=== PATIENT | female | born 1960 | race African-American/Black ===

== ENCOUNTER 2016-11-27 20:48 | Emergency (ER) | payer OTHER ==
[~2016-11-27] VITALS: Ht 167.6 cm; Wt 88.0 kg
[~2016-11-27 20:48] MED LIST: BENA25TA8 PO; EPIP0.3I IM; PRED20 PO
[2016-11-27 20:54] VITALS: BP 148/73; PULSE 83; RESP 15; TEMP 98.8; O2SAT 100
--- NOTE | 2016-11-27 22:05 | PD ---
HPI Chief Complaint: Abdominal Pain Time Seen by Provider: 22:05 Travel History International Travel<30 days: No Contact w/Intl Traveler<30days: No Traveled to known affect area: No History of Present Illness HPI 56 YO F with PMH of anxiety and depression presents to the ED for evaluation of 1 week history of dull, diffuse abdominal pain, multiple episodes of loose, mucous-like stools. Patient endorses accompanying nausea. She thinks she may have seen a little bit of streaky blood in the stool today. She denies fever, chills, vomiting, dysuria. She's never had a similar episode. Denies abdominal surgery. She endorses negative colonoscopy at age 52. PFSH Past Medical History Diminished Hearing: No Immunizations Current: No ?: Not Menopausal: Yes Social History Alcohol Use: No Tobacco Use: No Substance Use: Yes Allergies-Medications (Allergen,Severity, Reaction): Coded Allergies: peanut (Unverified Allergy, Unknown, Anaphylaxis, 11/27/16) Reported Meds & Prescriptions Reported Meds & Active Scripts Active Lortab (Hydrocodone-Acetaminophen) 5-325 Mg Tab 1 Tab PO Q6H PRN Flagyl (Metronidazole) 500 Mg Tab 500 Mg PO TID 7 Days Cipro (Ciprofloxacin HCl) 500 Mg Tab 500 Mg PO BID 7 Days Protonix (Pantoprazole Sodium) 40 Mg Tab 40 Mg PO DAILY Reported Epipen (Epinephrine) 0.3 Mg/0.3 Ml Auto.injct 1 Ampule SQ PRN Lexapro (Escitalopram Oxalate) 10 Mg Tab 10 Mg PO DAILY Claritin (Loratadine) 10 Mg Cap 10 Mg PO DAILY Singulair (Montelukast Sodium) 10 Mg Tab 10 Mg PO HS Review of Systems Except as stated in HPI: all other systems reviewed are Neg Physical Exam Narrative GENERAL: Well-nourished, well-developed black female in no acute distress. SKIN: Focused skin assessment warm/dry. HEAD: Normocephalic. EYES: No scleral icterus. No injection or drainage. NECK: Supple, trachea midline. No JVD or lymphadenopathy. CARDIOVASCULAR: Regular rate and rhythm without murmurs, gallops, or rubs. RESPIRATORY: Breath sounds clear and equal bilaterally. No accessory muscle use. GASTROINTESTINAL: Abdomen soft, nondistended. Mildly diffusely tender including in the right upper quadrant. Hypoactive bowel sounds. RECTAL EXAM: No masses or tenderness, stool is mucousy. Guaiac positive. MUSCULOSKELETAL: No cyanosis, or edema. BACK: Nontender without obvious deformity. No CVA tenderness. Data Data Last Documented VS Vital Signs Date Time Temp Pulse Resp B/P (MAP) Pulse Ox O2 Delivery O2 Flow Rate FiO2 11/28/16 00:22 11/27/16 23:45 16 11/27/16 20:54 98.8 83 100 Room Air Orders Orders Complete Blood Count With Diff (11/27/16 22:15) Comprehensive Metabolic Panel (11/27/16 22:15) Lipase (11/27/16 22:15) Lactic Acid (11/27/16 22:15) Prothrombin Time / Inr (Pt) (11/27/16:15) Act Partial Throm Time (Ptt) (11/27/16:15) Urinalysis - C+S If Indicated (11/27/16 22:15) Ct Abd/Pel W Iv Contrast(Rout) (11/27/16 22:15) Iv Access Insert/Monitor (11/27/16 22:15) Ecg Monitoring (11/27/16 22:15) Oximetry (11/27/16 22:15) NPO (11/27/16 22:15) Ondansetron Inj (Zofran Inj) (11/27/16 22:15) Sodium Chlor 0.9% 1000 Ml Inj (Ns 1000 M (11/27/16 22:15) Sodium Chloride 0.9% Flush (Ns Flush) (11/27/16 22:15) Morphine Inj (Morphine Inj) (11/27/16 22:15) Pantoprazole (Protonix) (11/27/16 23:00) Calcium Carbonate Chew (Tums Chew) (11/27/16 23:15) Iohexol 350 Inj (Omnipaque 350 Inj) (11/27/16 23:27) Acetamin-Hydrocod 325-5 Mg ([place] 5-325 (11/28/16 00:00) Labs Laboratory Tests Test 11/27/16 22:25 11/27/16 22:34 Urine Color YELLOW Urine Turbidity CLEAR Urine pH 6.0 Urine Specific [place] 1.022 Urine Protein TRACE mg/dL Urine Glucose (UA) NEG mg/dL Urine Ketones NEG mg/dL Urine Occult Blood NEG Urine Nitrite NEG Urine Bilirubin NEG Urine Urobilinogen 2.0 MG/DL Urine Leukocyte Esterase NEG Urine RBC 2 /hpf Urine WBC 2 /hpf Urine Squamous Epithelial Cells 3 /hpf Urine Mucus FEW /lpf Microscopic Urinalysis Comment CULT NOT INDICATED White Blood Count 9.1 TH/MM3 Red Blood Count 4.18 MIL/MM3 Hemoglobin 12.4 GM/DL Hematocrit 37.7 % Mean Corpuscular Volume 90.2 FL Mean Corpuscular Hemoglobin 29.7 PG Mean Corpuscular Hemoglobin Concent 32.9 % Red Cell Distribution Width 14.2 % Platelet Count 259 TH/MM3 Mean Platelet Volume 9.3 FL Neutrophils (%) (Auto) 65.2 % Lymphocytes (%) (Auto) 25.0 % Monocytes (%) (Auto) 8.1 % Eosinophils (%) (Auto) 1.4 % Basophils (%) (Auto) 0.3 % Neutrophils # (Auto) 6.0 TH/MM3 Lymphocytes # (Auto) 2.3 TH/MM3 Monocytes # (Auto) 0.7 TH/MM3 Eosinophils # (Auto) 0.1 TH/MM3 Basophils # (Auto) 0.0 TH/MM3 CBC Comment DIFF FINAL Differential Comment Prothrombin Time 10.0 SEC Prothromb Time International Ratio 0.9 RATIO Activated Partial Thromboplast Time 24.3 SEC Blood Urea Nitrogen 9 MG/DL Creatinine 0.60 MG/DL Random Glucose 76 MG/DL Total Protein 8.0 GM/DL Albumin 3.3 GM/DL Calcium Level 8.3 MG/DL Alkaline Phosphatase 87 U/L Aspartate Amino Transf (AST/SGOT) 20 U/L Alanine Aminotransferase (ALT/SGPT) 29 U/L Total Bilirubin 0.3 MG/DL Sodium Level 138 MEQ/L Potassium Level 3.9 MEQ/L Chloride Level 107 MEQ/L Carbon Dioxide Level 24.0 MEQ/L Anion Gap 7 MEQ/L Estimat Glomerular Filtration Rate 126 ML/MIN Lactic Acid Level 0.9 mmol/L Lipase 132 U/L MDM Medical Decision Making Medical Screen Exam Complete: Yes Emergency Medical Condition: Yes Differential Diagnosis Colitis versus IBD versus cholecystitis versus diverticulitis versus other Narrative Course 56 YO F with PMH of anxiety and depression presents to the ED for evaluation of 1 week history of dull, diffuse abdominal pain, multiple episodes of loose, mucous-like stools. Patient endorses accompanying nausea. She thinks she may have seen a little bit of streaky blood in the stool today. She denies fever, chills, vomiting, dysuria. She's never had a similar episode. Denies abdominal surgery. She had a colonoscopy at age 52. Vitals reviewed. On physical exam the patient is nontoxic appearing but does have diffuse, mild tenderness in the abdomen. Guaiac positive on rectal exam. Patient was administered a liter of normal saline, 4 mg Zofran, 2.5 mg morphine IV and 40 mg Protonix by mouth. No elevation of the white count or anemia. Mild hypocalcemia. Patient was administered [address] is pending at this time. Disposition per Dr. Saavedra. [facility] Point of Care Internal Pos. & Neg. Controls: Passed Fecal Specimen Occult Blood: Positive Diagnosis Primary Impression: GI bleed Qualified Codes: K92.2 - Gastrointestinal hemorrhage, unspecified Referrals: [employer] [employer] Patient Instructions: Gastrointestinal Bleeding (ED), General Instructions Med/Other Pt SpecificInfo: Prescription(s) given Scripts Hydrocodone-Acetaminophen (Lortab) 5-325 Mg Tab 1 TAB PO Q6H Y for PAIN, #7 TAB 0 Refills Prov: Dottie Saavedra MD 11/27/16 Metronidazole (Flagyl) 500 Mg Tab 500 MG PO TID for Infection for 7 Days, TAB 0 Refills Prov: Dottie Saavedra MD 11/27/16 Ciprofloxacin (Cipro) 500 Mg Tab 500 MG PO BID for Infection for 7 Days, #14 TAB 0 Refills Prov: Dottie Saavedra MD 11/27/16 Pantoprazole (Protonix) 40 Mg Tab 40 MG PO DAILY for GI bleed, #30 TAB 0 Refills Prov: Dottie Saavedra MD 11/27/16 Disposition: 01 DISCHARGE HOME Condition: Stable Yun Salas Nov 27, 2016 22:05
[2016-11-27] MEDS ORDERED: MONT10TA2 PO (22:09)
[2016-11-27] MEDS ORDERED: CLAR10CA3 PO (22:09)
[2016-11-27] MEDS ORDERED: EPIN0.3A2 SQ (22:09)
[2016-11-27] MEDS ORDERED: LEXA10TA PO (22:09)
[2016-11-27] MEDS ORDERED: SODIUM CHLORIDE 0.9% FLUSH 10 ML FLUSH IV FLUSH PRN (22:15)
[2016-11-27] MEDS ORDERED: SODIUM CHLOR 0.9% 1000 ML INJ 1,000 ML IV SCH (22:15)
[2016-11-27] MEDS ORDERED: MORPHINE SULFATE 4 MG/ML INJ IV PUSH ONE (22:15)
[2016-11-27] MEDS ORDERED: ONDANSETRON HCL 4 MG/2 ML VIAL IVP ONE (22:15)
[2016-11-27 22:40] LABS: BLOOD, URINE NEG (NEG); COMMENT (UR) CULT NOT INDICATED; CULTURE IF INDICATED CULT NOT INDICATED; GLUCOSE,URINE NEG (NEG); KETONE, URINE NEG (NEG); MUCUS URINE FEW /lpf (OCC); NITRITE,URINE NEG (NEG); SQUAMOUS EPITHELIAL CELL URINE 3 /hpf (0-5); URINE COLOR YELLOW (YELLW/STRAW)
[2016-11-27 22:46] LABS: BASOPHIL % 0.3 % (0.0-2.0); EOSINOPHIL # 0.1 TH/MM3 (0-0.4); EOSINOPHIL % 1.4 % (0.0-4.0); HEMATOCRIT 37.7 % (35.0-46.0); HEMO FLAGS DIFF FINAL; LYMPHOCYTE # 2.3 TH/MM3 (1.0-4.8); MEAN CELL VOLUME 90.2 FL (80.0-100.0); MEAN CORPUSCULAR HEMOGLOBIN 29.7 PG (27.0-34.0); MEAN CORPUSCULAR HGB CONC 32.9 % (32.0-36.0); MONO % 8.1 % (0.0-8.0); NEUT % 65.2 % (16.0-70.0); PLATELET COUNT 259 TH/MM3 (150-450); RED BLOOD COUNT 4.18 MIL/MM3 (4.00-5.30); RED CELL DISTRIBUTION WIDTH 14.2 % (11.6-17.2); WHITE BLOOD COUNT 9.1 TH/MM3 (4.0-11.0)
[2016-11-27 22:54] LABS: APTT (PATIENT) 24.3 SEC (24.3-30.1); INTERNATIONAL NORMALIZED RATIO 0.9 RATIO
[2016-11-27 22:58] LABS: ANION GAP 7 MEQ/L (5-15); AST (GOT) 20 U/L (15-37); BLOOD UREA NITROGEN 9 MG/DL (7-18); CHLORIDE 107 MEQ/L (98-107); GLOMERULAR FILTRATION RATE 126 ML/MIN (>89); POTASSIUM 3.9 MEQ/L (3.5-5.1); SODIUM (NA) 138 MEQ/L (136-145)
[2016-11-27] MEDS ORDERED: PANTOPRAZOLE SOD 40 MG DELAYED RELEASE TAB PO ONE (23:00)
[2016-11-27 23:01] LABS: ALKALINE PHOSPHATASE 87 U/L (45-117); ALT (GPT) 29 U/L (10-53); TOTAL BILIRUBIN ADULT 0.3 MG/DL (0.2-1.0)
[2016-11-27] MEDS ORDERED: PROT40TA PO (23:06)
[2016-11-27] MEDS ORDERED: CALCIUM CARBONATE 500 MG CHEWABLE TAB CHEW ONE (23:15)
[2016-11-27] MEDS ORDERED: IOHEXOL 350 MG/ML 10 ML VIAL (for RAD DIAG) IVCONTRAST ONE (23:27)
[2016-11-27 23:45] VITALS: RESP 16
--- NOTE | 2016-11-27 23:45 | RADRPT ---
EXAM DATE/TIME: 11/27/2016 23:16 [facility] COMPARISON: No previous studies available for comparison. INDICATIONS : Diffuse abdominal pain with diarrhea and nausea. IV CONTRAST: 100 cc Omnipaque 350 (iohexol) IV ORAL CONTRAST: No oral contrast ingested. RADIATION DOSE: 14.56 CTDIvol (mGy) MEDICAL HISTORY : None SURGICAL HISTORY : None. ENCOUNTER: Initial ACUITY: 1 week PAIN SCALE: 8/10 LOCATION: All quadrants. TECHNIQUE: Volumetric scanning of the abdomen and pelvis was performed. Using automated exposure control and ad justment of the mA and/or kV according to patient size, radiation dose was kept as low as reasonably achievable to obtain optimal diagnostic quality images. DICOM format image data is available electro nically for review and comparison. FINDINGS: LOWER LUNGS: The visualized lower lungs are clear. LIVER: Isolated, 1.6 cm complex low density lesion in the inferior aspect of the left hepatic lobe. There i s no dilation of the biliary tree. No calcified gallstones. SPLEEN: Normal size without lesion. PANCREAS: Within normal limits. KIDNEYS: Normal in size and shape. There is no mass, stone or hydronephrosis. ADRENAL GLANDS: Within normal limits. VASCULAR: There is no aortic aneurysm. BOWEL/MESENTERY: Large amount of stool in the ascending and proximal transverse colon with decompression of more dista l colon. Mild stranding in the perirectal fat around the distal colon. ABDOMINAL WALL: Within normal limits. RETROPERITONEUM: There is no lymphadenopathy. BLADDER: No wall thickening or mass. REPRODUCTIVE: Multiple uterine fibroids, largest measuring up to 5 cm in diameter. INGUINAL: There is no lymphadenopathy or hernia. MUSCULOSKELETAL: Within normal limits for patient age. CONCLUSION: 1. Fibroid uterus. 2. Stool in the ascending and proximal transverse colon. The entire descending and sigmoid portions o f the colon as well as the rectal vault are decompressed with mild stranding of the perirectal fatty tissues. Findings are characteristic of a nonspecific mild colitis in the region of the rectum/sigmoi d. 3. Nonspecific, complex 1.6 cm area on the anterior aspect of the left hepatic lobe. This may represe nt a hemangioma. MRI could be performed on an outpatient basis for confirmation if clinically necessa ry. Linus Barnes MD on November 27, 2016 at 23:35 Board Certified Radiologist. This report was verified electronically.
[2016-11-27] MEDS ORDERED: METR-1 PO (23:55)
[2016-11-27] MEDS ORDERED: CIPR-9 PO (23:55)
[2016-11-27] MEDS ORDERED: HYDR-3533 PO (23:56)
--- NOTE | 2016-11-27 23:56 | PD ---
Physical Exam Narrative I, Dr. Saavedra, have reviewed the advance practice practitioner's documentation and am in agreement, met with the patient face to face, made the diagnosis, and the medical decision making was done by me. *My assessment and Findings: Patient is a 56-year-old female comes in complaining of diarrhea since last Friday. She says she has had mucousy soft stool since then. She says that it started with a bloated, gassy feeling and then she has had pain from the right side of her abdomen all the way around. She denies fever. She has had some nausea, but no vomiting. Exam shows abdomen to be soft. There is mild diffuse tenderness. No rebound or guarding. Data Data Last Documented VS Vital Signs Date Time Temp Pulse Resp B/P (MAP) Pulse Ox O2 Delivery O2 Flow Rate FiO2 11/27/16 23:45 16 11/27/16 20:54 98.8 83 148/73 (98) 100 Room Air Orders Orders Complete Blood Count With Diff (11/27/16 22:15) Comprehensive Metabolic Panel (11/27/16 22:15) Lipase (11/27/16 22:15) Lactic Acid (11/27/16 22:15) Prothrombin Time / Inr (Pt) (11/27/16 22:15) Act Partial Throm Time (Ptt) (11/27/16 22:15) Urinalysis - C+S If Indicated (11/27/16 22:15) Ct Abd/Pel W Iv Contrast(Rout) (11/27/16 22:15) Iv Access Insert/Monitor (11/27/16 22:15) Ecg Monitoring (11/27/16 22:15) Oximetry (11/27/16 22:15) NPO (11/27/16 22:15) Ondansetron Inj (Zofran Inj) (11/27/16 22:15) Sodium Chlor 0.9% 1000 Ml Inj (Ns 1000 M (11/27/16 22:15) Sodium Chloride 0.9% Flush (Ns Flush) (11/27/16 22:15) Morphine Inj (Morphine Inj) (11/27/16 22:15) Pantoprazole (Protonix) (11/27/16 23:00) Calcium Carbonate Chew (Tums Chew) (11/27/16 23:15) Iohexol 350 Inj (Omnipaque 350 Inj) (11/27/16 23:27) Labs Laboratory Tests Test 11/27/16 22:25 11/27/16 22:34 Urine Color YELLOW Urine Turbidity CLEAR Urine pH 6.0 Urine Specific [place] 1.022 Urine Protein TRACE mg/dL Urine Glucose (UA) NEG mg/dL Urine Ketones NEG mg/dL Urine Occult Blood NEG Urine Nitrite NEG Urine Bilirubin NEG Urine Urobilinogen 2.0 MG/DL Urine Leukocyte Esterase NEG Urine RBC 2 /hpf Urine WBC 2 /hpf Urine Squamous Epithelial Cells 3 /hpf Urine Mucus FEW /lpf Microscopic Urinalysis Comment CULT NOT INDICATED White Blood Count 9.1 TH/MM3 Red Blood Count 4.18 MIL/MM3 Hemoglobin 12.4 GM/DL Hematocrit 37.7 % Mean Corpuscular Volume 90.2 FL Mean Corpuscular Hemoglobin 29.7 PG Mean Corpuscular Hemoglobin Concent 32.9 % Red Cell Distribution Width 14.2 % Platelet Count 259 TH/MM3 Mean Platelet Volume 9.3 FL Neutrophils (%) (Auto) 65.2 % Lymphocytes (%) (Auto) 25.0 % Monocytes (%) (Auto) 8.1 % Eosinophils (%) (Auto) 1.4 % Basophils (%) (Auto) 0.3 % Neutrophils # (Auto) 6.0 TH/MM3 Lymphocytes # (Auto) 2.3 TH/MM3 Monocytes # (Auto) 0.7 TH/MM3 Eosinophils # (Auto) 0.1 TH/MM3 Basophils # (Auto) 0.0 TH/MM3 CBC Comment DIFF FINAL Differential Comment Prothrombin Time 10.0 SEC Prothromb Time International Ratio 0.9 RATIO Activated Partial Thromboplast Time 24.3 SEC Blood Urea Nitrogen 9 MG/DL Creatinine 0.60 MG/DL Random Glucose 76 MG/DL Total Protein 8.0 GM/DL Albumin 3.3 GM/DL Calcium Level 8.3 MG/DL Alkaline Phosphatase 87 U/L Aspartate Amino Transf (AST/SGOT) 20 U/L Alanine Aminotransferase (ALT/SGPT) 29 U/L Total Bilirubin 0.3 MG/DL Sodium Level 138 MEQ/L Potassium Level 3.9 MEQ/L Chloride Level 107 MEQ/L Carbon Dioxide Level 24.0 MEQ/L Anion Gap 7 MEQ/L Estimat Glomerular Filtration Rate 126 ML/MIN Lactic Acid Level 0.9 mmol/L Lipase 132 U/L [facility] Supervised Visit with PAU: No Narrative Course Labs show no acute abnormalities. CT abdomen and pelvis performed shows evidence of mild colitis. Patient given pain medicine. She'll be discharged with prescriptions for pain medicine, Cipro, Flagyl. She has a packer sausage and wiener, who she will follow up with. She is advised to return as needed for any worsening symptoms. Diagnosis Primary Impression: Colitis Referrals: [employer] Patient Instructions: Colitis (ED), Gastrointestinal Bleeding (ED), General Instructions Additional Instruction: Follow-up with her packer sausage and wiener. Make sure he take all of your antibiotics. Do not drink alcohol as it will make it very sick. Drink plenty of fluids. Return to the ED as needed for any worsening symptoms. Scripts Hydrocodone-Acetaminophen (Lortab) 5-325 Mg Tab 1 TAB PO Q6H Y for PAIN, #7 TAB 0 Refills Prov: Dottie Saavedra MD 11/27/16 Metronidazole (Flagyl) 500 Mg Tab 500 MG PO TID for Infection for 7 Days, TAB 0 Refills Prov: Dottie Saavedra MD 11/27/16 Ciprofloxacin (Cipro) 500 Mg Tab 500 MG PO BID for Infection for 7 Days, #14 TAB 0 Refills Prov: Dottie Saavedra MD 11/27/16 Pantoprazole (Protonix) 40 Mg Tab 40 MG PO DAILY for GI bleed, #30 TAB 0 Refills Prov: Dottie Saavedra MD 11/27/16 Disposition: 01 DISCHARGE HOME Condition: Stable Dottie Saavedra MD Nov 27, 2016 23:56
[2016-11-28] MEDS ORDERED: ACETAMINOPHEN/HYDROcodone 325 MG/5 MG TAB PO ONE
== END 2016-11-28 00:24 | disposition home or self-care (01) ==
LOC: NEPC 20:48
DX: K52.9 Noninfective gastroenteritis and colitis, unspecified (principal)
CPT/HCPCS: 74177; 80053; 81001; 83605; 83690; 85025; 85610; 85730; 96361; 96374; 96375; 99285; J2270; J2405; J7030; Q9967

== ENCOUNTER 2016-12-11 10:49 | Emergency (ER) | payer OTHER ==
[~2016-12-11] VITALS: Ht 167.6 cm; Wt 88.5 kg
[~2016-12-11 10:49] MED LIST changes: -BENA25TA8 PO; +CIPR-9 PO; +CLAR10CA3 PO; +EPIN0.3A2 SQ; -EPIP0.3I IM; +HYDR-3533 PO; +LEXA10TA PO; +METR-1 PO; +MONT10TA2 PO; -PRED20 PO; +PROT40TA PO
[2016-12-11 10:50] VITALS: BP 137/83; PULSE 99; RESP 20; TEMP 99; O2SAT 100
--- NOTE | 2016-12-11 11:26 | PD ---
HPI Chief Complaint: GI Complaint Time Seen by Provider: 11:15 Travel History International Travel<30 days: No Contact w/Intl Traveler<30days: No Traveled to known affect area: No History of Present Illness HPI 56-year-old female, with history of colitis, presents to the emergency Department with complaint of lower abdominal pain that started again on Friday with mucousy stool. Was seen here on November 27 and completed prescription for Flagyl and ciprofloxacin on with re-exacerbation of symptoms starting Friday. Reports subjective fever yesterday, otherwise has not taken her temperature and cannot reported MAXIMUM TEMPERATURE. Denies nausea, vomiting. Denies dysuria, vaginal symptoms. Denies bloody stool. Has follow- up appointment on December 27 with gastroenterology. Took Aleve on Friday for symptom management with no relief. No known relieving or aggravating factors. Has no other medical complaints. Allergies to peanuts. No other modifying factors or associated signs and symptoms. PFSH Past Medical History Anxiety: Yes Diminished Hearing: No Gastrointestinal Disorders: Yes (hx colitis ) Psychiatric: Yes Immunizations Current: No Tetanus Vaccination: > 5 Years Influenza Vaccination: Yes ?: Not Menopausal: Yes Social History Alcohol Use: No Tobacco Use: No (quit 20 years) Substance Use: No (pt denies ) Allergies-Medications (Allergen,Severity, Reaction): Coded Allergies: peanut (Verified Allergy, Severe, Anaphylaxis, 12/11/16) Reported Meds & Prescriptions Reported Meds & Active Scripts Active Cipro (Ciprofloxacin HCl) 500 Mg Tab 500 Mg PO BID 10 Days Flagyl (Metronidazole) 500 Mg Tab 500 Mg PO TID 10 Days Lortab (Hydrocodone-Acetaminophen) 5-325 Mg Tab 1-2 Tab PO Q6H PRN Reported Lexapro (Escitalopram Oxalate) 10 Mg Tab 10 Mg PO DAILY Claritin (Loratadine) 10 Mg Cap 10 Mg PO DAILY Singulair (Montelukast Sodium) 10 Mg Tab 10 Mg PO HS Review of Systems Except as stated in HPI: all other systems reviewed are Neg Physical Exam Narrative GENERAL: Well-nourished, well-developed black female patient, in no acute distress; low-grade fever 99.0; nontoxic-appearing SKIN: Warm and dry. HEAD: Atraumatic. Normocephalic. EYES: Pupils equal and round. No scleral icterus. No injection or drainage. ENT: Mucosa pink and moist. Airway patent. NECK: Trachea midline. CARDIOVASCULAR: Regular rate and rhythm. No murmur appreciated. RESPIRATORY: No accessory muscle use. Clear to auscultation. Breath sounds equal bilaterally. GASTROINTESTINAL: Abdomen soft, tenderness on palpation to left lower and right lower quadrant, nondistended. Hepatic and splenic margins not palpable. Bowel sounds are active 4 quadrants. MUSCULOSKELETAL: No obvious deformities. No clubbing. No cyanosis. No edema. NEUROLOGICAL: Awake and alert. Oriented 3. No obvious cranial nerve deficits. Motor grossly within normal limits. Normal speech. PSYCHIATRIC: Appropriate mood and affect; insight and judgment normal. Data Data Last Documented VS Vital Signs Date Time Temp Pulse Resp B/P (MAP) Pulse Ox O2 Delivery O2 Flow Rate FiO2 12/11/16 16:15 97.8 76 16 124/83 (97) 99 12/11/16 15:00 Room Air Orders Orders Complete Blood Count With Diff (12/11/16 11:29) Comprehensive Metabolic Panel (12/11/16 11:29) Lipase (12/11/16 11:29) Prothrombin Time / Inr (Pt) (12/11/16 11:29) Act Partial Throm Time (Ptt) (12/11/16 11:29) Urinalysis - C+S If Indicated (12/11/16 11:29) Ct Abd/Pel W/O Iv Contrast (12/11/16 11:29) Iv Access Insert/Monitor (12/11/16 11:29) Ecg Monitoring (12/11/16 11:29) Oximetry (12/11/16 11:29) Sodium Chlor 0.9% 1000 Ml Inj (Ns 1000 M (12/11/16 11:29) Sodium Chloride 0.9% Flush (Ns Flush) (12/11/16 11:30) Morphine Inj (Morphine Inj) (12/11/16 11:30) Lactic Acid (12/11/16 11:29) Ondansetron Inj (Zofran Inj) (12/11/16 11:30) Ed Urine Pregnancytest Poc (12/11/16 11:29) Acetamin-Hydrocod 325-5 Mg ([place] 5-325 (12/11/16 14:15) C Diff Toxin Pcr (12/11/16 16:00) Labs Laboratory Tests Test 12/11/16 11:40 12/11/16 13:20 12/11/16 16:14 White Blood Count 10.6 TH/MM3 Red Blood Count 4.16 MIL/MM3 Hemoglobin 12.5 GM/DL Hematocrit 37.8 % Mean Corpuscular Volume 90.7 FL Mean Corpuscular Hemoglobin 30.0 PG Mean Corpuscular Hemoglobin Concent 33.1 % Red Cell Distribution Width 14.0 % Platelet Count 348 TH/MM3 Mean Platelet Volume 8.9 FL Neutrophils (%) (Auto) 76.4 % Lymphocytes (%) (Auto) 14.9 % Monocytes (%) (Auto) 5.9 % Eosinophils (%) (Auto) 2.6 % Basophils (%) (Auto) 0.2 % Neutrophils # (Auto) 8.1 TH/MM3 Lymphocytes # (Auto) 1.6 TH/MM3 Monocytes # (Auto) 0.6 TH/MM3 Eosinophils # (Auto) 0.3 TH/MM3 Basophils # (Auto) 0.0 TH/MM3 CBC Comment DIFF FINAL Differential Comment Prothrombin Time 11.1 SEC Prothromb Time International Ratio 1.0 RATIO Activated Partial Thromboplast Time 21.6 SEC Blood Urea Nitrogen 8 MG/DL Creatinine 0.70 MG/DL Random Glucose 81 MG/DL Total Protein 7.9 GM/DL Albumin 3.2 GM/DL Calcium Level 8.5 MG/DL Alkaline Phosphatase 73 U/L Aspartate Amino Transf (AST/SGOT) 27 U/L Alanine Aminotransferase (ALT/SGPT) 17 U/L Total Bilirubin 0.6 MG/DL Sodium Level 136 MEQ/L Potassium Level 4.5 MEQ/L Chloride Level 103 MEQ/L Carbon Dioxide Level 26.8 MEQ/L Anion Gap 6 MEQ/L Estimat Glomerular Filtration Rate 106 ML/MIN Lactic Acid Level 1.1 mmol/L Lipase 86 U/L Urine Color LIGHT-YELLOW Urine Turbidity CLEAR Urine pH 6.5 Urine Specific [place] 1.006 Urine Protein NEG mg/dL Urine Glucose (UA) NEG mg/dL Urine Ketones NEG mg/dL Urine Occult Blood TRACE Urine Nitrite NEG Urine Bilirubin NEG Urine Urobilinogen LESS THAN 2.0 MG/DL Urine Leukocyte Esterase NEG Urine RBC 1 /hpf Urine WBC 1 /hpf Urine Squamous Epithelial Cells 1 /hpf Urine Bacteria RARE /hpf Urine Mucus FEW /lpf Microscopic Urinalysis Comment CULT NOT INDICATED Stool C. difficile Toxin (PCR) POSITIVE Stl C. difficile Toxin Epiderm 027 PRESUMPTIVE POSITIVE MDM Medical Decision Making Medical Screen Exam Complete: Yes Emergency Medical Condition: Yes Medical Record Reviewed: Yes Differential Diagnosis Colitis, abdominal abscess, medical clearance Narrative Course 56-year-old female that was diagnosed with colitis on November 27 with recent exacerbation of symptoms starting Friday. She finished taking Flagyl and ciprofloxacin on . Has follow-up appointment with gastroenterology on December 27. Subjective fever at home yesterday. Has low-grade fever of 99.0 in the ER. Nontoxic-appearing. Reports mucus stools without blood. I spoke with my attending physician, Dr. Keen, and he recommended repeat CT scan to rule out development of abscess. IV is established. CBC, CMP, lactic acid, coags, lipase, urinalysis ordered. CT abdomen/pelvis ordered. Fluid bolus, morphine, Zofran administered in the ER. 1222: CBC unremarkable. Coags unremarkable. 1348: CMP unremarkable. Lipase 86. Lactic acid 1.1. 1358: Urinalysis with no signs of infection. CT abdomen concludes: Last 24 hours Impressions Abdomen/Pelvis CT 12/11/16 1129 Signed Impressions: Service Date/Time: Sunday, December 11, 2016 13:26 - CONCLUSION: 1. There is thickening of the colon and inflammatory change involving the sigmoid down to the level of the rectum suggesting a possible colitis. No free air is seen. No abscess is identified. 2. Enlargement of the uterus suggesting uterine fibroids. Modesto Harrell MD Call placed to patients delivery and installation subcontractor. 1527: Call received from Dr. Bruce and will call back. 1550: I spoke with Dr. Bruce and he recommended to give Flagyl and ciprofloxacin to treat outpatient. Patient will follow-up with Dr. Ybarra on December 27, 2016. His outpatient follow-up as scheduled appointment with gastroenterology. Flagyl, ciprofloxacin, Lortab prescribed for home. Instructed patient to follow up with primary care provider. Patient verbalizes understanding and agreement with treatment plan. Patient is medically cleared and stable for discharge. Discussed reasons to return to the emergency department. Patient agrees with treatment plan. The patients vital signs are stable and the patient is stable for outpatient follow-up and treatment. Patient discharged home, stable and in no acute distress. 1846: I received call from micrology and the patient is positive for C. difficile PCR. I called the patient and had no answer. 12/12/2016 1040am: I called and spoke with the patient and informed her of the positive result for C. difficile. Discussed C. difficile with the patient. Instructed patient to continue antibiotics as prescribed and to follow up with gastroenterology. She verbalized understanding and agreement. Diagnosis Primary Impression: Colitis Referrals: [facility] Primary Care Physician Patient Instructions: Colitis (ED), General Instructions Additional Instructions: Follow-up with gastroenterology Follow-up with primary care provider Return to the emergency department immediately with worsening symptoms Med/Other Pt SpecificInfo: Prescription(s) given Scripts Ciprofloxacin (Cipro) 500 Mg Tab 500 MG PO BID for Infection for 10 Days, #20 TAB 0 Refills Prov: Kaylin Noonan 12/11/16 Metronidazole (Flagyl) 500 Mg Tab 500 MG PO TID for Infection for 10 Days, TAB 0 Refills Prov: Kaylin Noonan 12/11/16 Hydrocodone-Acetaminophen (Lortab) 5-325 Mg Tab 1-2 TAB PO Q6H Y for PAIN, #20 TAB 0 Refills Prov: Kaylin Noonan 12/11/16 Disposition: 01 DISCHARGE HOME Condition: Stable Kaylin Noonan Dec 11, 2016 11:26
[2016-12-11] MEDS ORDERED: SODIUM CHLOR 0.9% 1000 ML INJ 1,000 ML IV SCH (11:29)
[2016-12-11] MEDS ORDERED: MORPHINE SULFATE 4 MG/ML INJ IV PUSH ONE (11:30)
[2016-12-11] MEDS ORDERED: SODIUM CHLORIDE 0.9% FLUSH 10 ML FLUSH IV FLUSH PRN (11:30)
[2016-12-11] MEDS ORDERED: ONDANSETRON HCL 4 MG/2 ML VIAL IVP ONE (11:30)
[2016-12-11 11:38] VITALS: RESP 16; O2SAT 99
[2016-12-11 12:08] LABS: AUTOMATED NEUTROPHIL # 8.1 TH/MM3 (1.8-7.7); BASOPHIL % 0.2 % (0.0-2.0); EOSINOPHIL # 0.3 TH/MM3 (0-0.4); EOSINOPHIL % 2.6 % (0.0-4.0); HEMATOCRIT 37.8 % (35.0-46.0); HEMO FLAGS DIFF FINAL; LYMPH % 14.9 % (9.0-44.0); LYMPHOCYTE # 1.6 TH/MM3 (1.0-4.8); MEAN CELL VOLUME 90.7 FL (80.0-100.0); MEAN CORPUSCULAR HGB CONC 33.1 % (32.0-36.0); MONO % 5.9 % (0.0-8.0); NEUT % 76.4 % (16.0-70.0); PLATELET COUNT 348 TH/MM3 (150-450); RED BLOOD COUNT 4.16 MIL/MM3 (4.00-5.30); WHITE BLOOD COUNT 10.6 TH/MM3 (4.0-11.0)
[2016-12-11 12:12] LABS: APTT (PATIENT) 21.6 SEC (24.3-30.1); PROTHROMBIN TIME - PATIENT 11.1 SEC (9.8-11.6)
[2016-12-11 12:31] LABS: ALKALINE PHOSPHATASE 73 U/L (45-117); ALT (GPT) 17 U/L (10-53); TOTAL BILIRUBIN ADULT 0.6 MG/DL (0.2-1.0)
[2016-12-11 12:39] LABS: ANION GAP 6 MEQ/L (5-15); AST (GOT) 27 U/L (15-37); BICARBONATE 26.8 MEQ/L (21.0-32.0); BLOOD UREA NITROGEN 8 MG/DL (7-18); CHLORIDE 103 MEQ/L (98-107); GLOMERULAR FILTRATION RATE 106 ML/MIN (>89); SODIUM (NA) 136 MEQ/L (136-145)
[2016-12-11 12:43] LABS: POTASSIUM 4.5 MEQ/L (3.5-5.1)
[2016-12-11 13:00] VITALS: BP 118/76; PULSE 84; RESP 17; TEMP 97.8; O2SAT 99
[2016-12-11 13:49] LABS: BACTERIA, URINE RARE /hpf; BLOOD, URINE TRACE (NEG); COMMENT (UR) CULT NOT INDICATED; CULTURE IF INDICATED CULT NOT INDICATED; GLUCOSE,URINE NEG (NEG); KETONE, URINE NEG (NEG); MUCUS URINE FEW /lpf (OCC); NITRITE,URINE NEG (NEG); PH, URINE 6.5 (5.0-8.5); SQUAMOUS EPITHELIAL CELL URINE 1 /hpf (0-5); URINE COLOR LIGHT-YELLOW (YELLW/STRAW)
--- NOTE | 2016-12-11 13:50 | RADRPT ---
EXAM DATE/TIME: 12/11/2016 13:26 [place] COMPARISON: CT ABDOMEN & PELVIS W CONTRAST, November 27, 2016, 23:16. INDICATIONS : Lower region abdomen pain with diarrhea. ORAL CONTRAST: No oral contrast ingested. RADIATION DOSE: 10.06 CTDIvol (mGy) MEDICAL HISTORY : Colitis, Uterine fibroids SURGICAL HISTORY : None. ENCOUNTER: Initial ACUITY: 1 day PAIN SCALE: 8/10 LOCATION: Bilateral lower quadrant TECHNIQUE: Volumetric scanning of the abdomen and pelvis was performed. Using automated exposure control and ad justment of the mA and/or kV according to patient size, radiation dose was kept as low as reasonably achievable to obtain optimal diagnostic quality images. DICOM format image data is available electro nically for review and comparison. FINDINGS: The limited portion of the lung base visualized is clear. The appearance of the liver, spleen, pancreas, adrenal glands and kidneys is within normal limits. The visualized loops of small large bowel demonstrate a moderate amount of stool diffusely throughout the colon. There is some fairly diffuse thickening of the colonic wall involving the distal sigmoid. Exam would suggest a possible colitis. There is no iliac or inguinal adenopathy present. The uterus is somewhat large suggesting uterine fib roids. No free air is seen. No free fluid is identified. The anterior abdominal wall is intact. The visualized bony structures are grossly intact. CONCLUSION: 1. There is thickening of the colon and inflammatory change involving the sigmoid down to the level o f the rectum suggesting a possible colitis. No free air is seen. No abscess is identified. 2. Enlargement of the uterus suggesting uterine fibroids. Modesto Harrell MD on December 11, 2016 at 13:46 Board Certified Radiologist. This report was verified electronically.
[2016-12-11] MEDS ORDERED: ACETAMINOPHEN/HYDROcodone 325 MG/5 MG TAB PO ONE (14:15)
[2016-12-11 15:00] VITALS: BP 120/65; PULSE 81; RESP 16; TEMP 97.9; O2SAT 99
[2016-12-11 15:20] VITALS: RESP 16
[2016-12-11] MEDS ORDERED: METR-1 PO ×2 (16:00→16:04)
[2016-12-11] MEDS ORDERED: HYDR-3533 PO (16:00)
[2016-12-11] MEDS ORDERED: CIPR-9 PO ×2 (16:00→16:04)
[2016-12-11 16:15] VITALS: BP 124/83; TEMP 97.8
[2016-12-11 18:28] LABS: C. DIFF EPI 027 PRESUMPTIVE POSITIVE (NEGATIVE)
== END 2016-12-11 16:15 | disposition home or self-care (01) ==
LOC: NEPD 10:49
DX: K52.9 Noninfective gastroenteritis and colitis, unspecified (principal); N85.2 Hypertrophy of uterus; F41.9 Anxiety disorder, unspecified; Z87.891 Personal history of nicotine dependence; Z79.899 Other long term (current) drug therapy
CPT/HCPCS: 74176; 80053; 81001; 83605; 83690; 84703; 85025; 85610; 85730; 87493; 96361; 96374; 96375; 99285; J2270; J2405; J7030